=== PATIENT | male | born 1955 | race Caucasian/White ===

== ENCOUNTER → 2021-03-26 11:33 | Outpatient (BNVA) | payer MEDICARE, OTHER, SELFPAY | PROVIDERS: Family Provider Physician Assistant Medical; PCP Physician Assistant Medical; Visit Provider Nurse Practitioner Family | DX: Z12.5 Encounter for screening for malignant neoplasm of prostate (principal); R35.1 Nocturia; N40.1 Benign prostatic hyperplasia with lower urinary tract symptoms; R31.0 Gross hematuria | CPT/HCPCS: 81003; 87086; 88112; G0103 ==

== ENCOUNTER 2021-04-25 11:43 | Outpatient (CLI) | payer MEDICARE, OTHER, SELFPAY ==
--- NOTE | 2021-04-25 12:00 | CT_ITS ---
WS: [id number] CT ABDOMEN AND PELVIS WITH AND WITHOUT CONTRAST HISTORY: GROSS HEMATURIA TECHNIQUE: Unenhanced 5 mm axial imaging first performed through the abdomen. Post contrast imaging t hrough the abdomen and pelvis. Oral contrast has not been provided. Sagittal and coronal reformats a re submitted. All CT scans at [facility] use at least one of these dose optimization techniqu es: automated exposure control; mA and/or kV adjustment per patient size (includes targeted exams whe re dose is matched to clinical indication); or iterative reconstruction. CONTRAST: Omnipaque 300; 95 mL IV. DLP: 4148.12 mGy.cm COMPARISON: None available. 4 mm noncalcified nodule at the LEFT lung base. Benign granuloma medial LEFT lower lobe. Heart size i s normal. No pericardial effusion. Small hiatal hernia. Liver is normal size. Peripherally enhancing masses with near complete filling in and becoming isoden se with the remaining liver on the delayed imaging. This is typical for hepatic hemangiomas. The larg est measures 2.6 x 2.0 cm. Both of these are in the RIGHT lobe of the liver. Negative gallbladder spl een, pancreas and adrenal glands. Mild atherosclerosis aorta. Normal size RIGHT kidney. Well-circumscribed hypodense mass in the lower pole measures 2.7 x 3.3 cm. No significant enhancement. This likely is a benign complex cyst. No renal calcifications or obstruct ion. No uroepithelial lesion identified. Very distal ureter is not opacified with contrast. LEFT kidney: Normal size kidney with no calcifications or obstruction. No solid mass or cyst. No uroe pithelial lesion. The very distal ureter is not opacified with contrast but there is no dilatation. No enhancing nodules in the urinary bladder. Prostate gland is enlarged extending over length of 7.8 cm x 6.1 x 4.3 cm. Fat-containing umbilical hernia. No GI tract obstruction. The appendix has been surgically removed. T here are a few scattered diverticula with no acute diverticulitis. Inguinal canals are patent bilater ally. Mild spondylitic changes within the lower thoracic and lumbar spine. No destructive bone lesions. CT/CT abdomen pelvis wo/w [id number] IMPRESSION: 1. No solid renal mass or obstruction. Minimally complex cyst lower pole RIGHT kidney measures 2.7 x 3.3 cm. 2. Prostate gland enlargement. Heterogeneous prostate measures 7.8 x 6.1 x 4.3 cm. 3. 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 4. Noncalcified 4 mm nodule in the LEFT lower lobe.
[2021-04-25] MEDS: iohexol 300 mg/mL 100 mL Btl IV (13:00)
== END 2021-04-25 11:44 | disposition home or self-care (01) ==
PROVIDERS: PCP Nurse Practitioner Family; Visit Provider Nurse Practitioner Family
DX: R31.0 Gross hematuria (principal); R91.1 Solitary pulmonary nodule; D18.09 Hemangioma of other sites; N40.0 Benign prostatic hyperplasia without lower urinary tract symptoms; N40.1 Benign prostatic hyperplasia with lower urinary tract symptoms
CPT/HCPCS: 74178; 81003

== ENCOUNTER 2021-04-25 11:46 | Outpatient (CLI) | payer MEDICARE, OTHER, SELFPAY ==
[2021-04-25 12:34] LABS: Blood Urea Nitrogen 12 mg/dL (8-23); Glomerular Filtration Rate 96.4 mL/min (90-130)
== END 2021-04-25 11:47 | disposition home or self-care (01) ==
LOC: LAB 11:49
PROVIDERS: PCP Nurse Practitioner Family; Visit Provider Urology
DX: R97.20 Elevated prostate specific antigen [PSA] (principal)
CPT/HCPCS: 36415; 82565; 84153; 84520

== ENCOUNTER → 2021-07-26 08:05 | Outpatient (BNVA) | payer MEDICARE, OTHER, SELFPAY | PROVIDERS: PCP Nurse Practitioner Family; Visit Provider Urology | DX: R97.20 Elevated prostate specific antigen [PSA] (principal); N40.1 Benign prostatic hyperplasia with lower urinary tract symptoms | CPT/HCPCS: 84153 ==

== ENCOUNTER 2022-02-07 08:50 | Outpatient (CLI) | payer MEDICARE, OTHER, SELFPAY ==
[2022-02-07 10:22] LABS: Prostate Specific AG Urology 4.51 ng/mL (0-4)
== END 2022-02-07 08:51 | disposition home or self-care (01) ==
PROVIDERS: PCP Registered Nurse; Visit Provider Urology
DX: N40.1 Benign prostatic hyperplasia with lower urinary tract symptoms (principal); R97.20 Elevated prostate specific antigen [PSA]; Z80.42 Family history of malignant neoplasm of prostate; N28.1 Cyst of kidney, acquired
CPT/HCPCS: 36415; 51798; 84153; 99213

== ENCOUNTER → 2022-11-01 13:08 | Outpatient (BNVA) | payer MEDICARE, OTHER, SELFPAY | PROVIDERS: PCP Registered Nurse; Visit Provider Thoracic Surgery (Cardiothoracic Vascular Surgery) | DX: L98.412 Non-pressure chronic ulcer of buttock with fat layer exposed (principal) | CPT/HCPCS: 11042; 99213 ==

== ENCOUNTER → 2022-11-08 14:00 | Outpatient (BNVA) | payer MEDICARE, OTHER, SELFPAY | PROVIDERS: PCP Registered Nurse; Visit Provider Thoracic Surgery (Cardiothoracic Vascular Surgery) | DX: I96 Gangrene, not elsewhere classified (principal); L89.322 Pressure ulcer of left buttock, stage 2 | CPT/HCPCS: 11042 ==

== ENCOUNTER → 2022-11-15 09:56 | Outpatient (BNVA) | payer MEDICARE, OTHER, SELFPAY | PROVIDERS: PCP Registered Nurse; Visit Provider Thoracic Surgery (Cardiothoracic Vascular Surgery) | DX: I96 Gangrene, not elsewhere classified (principal); L89.322 Pressure ulcer of left buttock, stage 2 | CPT/HCPCS: 11042 ==

== ENCOUNTER → 2022-11-22 10:51 | Outpatient (BNVA) | payer MEDICARE, OTHER, SELFPAY | PROVIDERS: PCP Registered Nurse; Visit Provider Thoracic Surgery (Cardiothoracic Vascular Surgery) | DX: L89.322 Pressure ulcer of left buttock, stage 2 (principal) | CPT/HCPCS: 11042; A6210 ==

== ENCOUNTER → 2022-11-29 14:19 | Outpatient (BNVA) | payer MEDICARE, OTHER, SELFPAY | PROVIDERS: PCP Registered Nurse; Visit Provider Thoracic Surgery (Cardiothoracic Vascular Surgery) | DX: I96 Gangrene, not elsewhere classified (principal); L89.322 Pressure ulcer of left buttock, stage 2 | CPT/HCPCS: 11042 ==

== ENCOUNTER → 2022-12-06 14:00 | Outpatient (BNVA) | payer MEDICARE, OTHER, SELFPAY | PROVIDERS: PCP Registered Nurse; Visit Provider Thoracic Surgery (Cardiothoracic Vascular Surgery) | DX: I96 Gangrene, not elsewhere classified (principal); L89.322 Pressure ulcer of left buttock, stage 2 | CPT/HCPCS: 97597; A6210; A6212 ==

== ENCOUNTER → 2022-12-13 08:30 | Outpatient (BNVA) | payer MEDICARE, OTHER, SELFPAY | PROVIDERS: PCP Registered Nurse; Visit Provider Thoracic Surgery (Cardiothoracic Vascular Surgery) | DX: I96 Gangrene, not elsewhere classified (principal); L89.322 Pressure ulcer of left buttock, stage 2 | CPT/HCPCS: 97597; A6212 ==

== ENCOUNTER → 2022-12-27 09:07 | Outpatient (BNVA) | payer MEDICARE, OTHER, SELFPAY | PROVIDERS: PCP Registered Nurse; Visit Provider Thoracic Surgery (Cardiothoracic Vascular Surgery) | DX: I96 Gangrene, not elsewhere classified (principal); L89.322 Pressure ulcer of left buttock, stage 2 | CPT/HCPCS: 97597; A6210; A6212 ==

== ENCOUNTER → 2023-01-03 09:07 | Outpatient (BNVA) | payer MEDICARE, OTHER, SELFPAY | PROVIDERS: PCP Registered Nurse; Visit Provider Thoracic Surgery (Cardiothoracic Vascular Surgery) | DX: I96 Gangrene, not elsewhere classified (principal); L89.322 Pressure ulcer of left buttock, stage 2 | CPT/HCPCS: 99212; A6210; A6212 ==

== ENCOUNTER 2024-05-03 09:42 | Outpatient (CLI) | payer MEDICARE, OTHER, SELFPAY ==
--- NOTE | 2024-05-03 09:47 | US_ITS ---
WS: [id number] ULTRASOUND-GUIDED BILATERAL THYROID NODULE FNA HISTORY: Bilateral thyroid nodules. Nodules are within the lower pole of each gland. Procedure, risks, and complications were explained to the patient. Consent has been obtained. Prior imaging studies reviewed from 04/06/2024. Thyroid nodules are within the lower pole of each glan d and extends substernally and are very difficult to biopsy. The skin is cleansed with ChloraPrep and anesthetized with 1% buffered lidocaine. FNA performed with 25 gauge needles. ultrasound technologist sonographer is present to fix slides. Multiple biopsies are performed of each thyroid nodule. US/US biopsy/FNA thyroid [id number] IMPRESSION: Uncomplicated FNA of bilateral lower lobe thyroid nodules. Final pathology resu lts pending. Biopsy was very difficult to perform. This was due to the position of the nodul es which extends substernal in size of the patient. If biopsy is not diagnostic suggest surgical excision.
== END 2024-05-03 09:43 | disposition home or self-care (01) ==
LOC: RAD 09:44
PROVIDERS: PCP Registered Nurse; Visit Provider Registered Nurse
DX: E04.2 Nontoxic multinodular goiter (principal)
CPT/HCPCS: 10005; 88173